=== PATIENT | female | born 1945 | race Native Hawaiian/Other Pacific Islander ===

== ENCOUNTER 2016-09-09 09:29 | Inpatient (IN) | payer OTHER ==
[~2016-09-09 09:29] MED LIST: ACET7.5T70 PO; ALEVE220 MG PO; ALLO300T23 PO; ALPR0.2566 PO; ATTALIQ6 PO; CARV6.25 PO; CLINDAMYCIN300 MG PO; DIVA500T PO; DOCU100C10 PO; FLUC200T PO; FOLI1TAB26 PO; INDERAL LA120 MG PO; KETO10TA34 PO; LIDODERM5 % EX; MAG OXIDE400 M2 PO; MAGNSUS68 PO; MEGE40TA32 PO; METF500T PO; NEXIUM40 M1 PO; NORTRIPTYLIN25 MG PO; ONDA4TAB3 PO; PANT40TA PO; PRAMIPEXOLE0.125 MG OR; PROMETHAZINE25 MG OR; Q-TUSSIN100 MG/5 M PO; TRAM50TA PO; VENLAFAXINE150 M1 PO; Z-PAK PO
== END 2016-10-10 08:00 | disposition still patient (30) ==
LOC: PAVB 09:29
PROVIDERS: ADMIT Internal Medicine
DX: Z51.89 Encounter for other specified aftercare (principal)

== ENCOUNTER 2016-10-10 09:00 | Inpatient (IN) | payer OTHER | END 2016-11-10 10:16 | disposition still patient (30) | LOC: PAVB 09:00 | PROVIDERS: ADMIT Internal Medicine | DX: Z51.89 Encounter for other specified aftercare (principal) ==

== ENCOUNTER 2016-10-11 08:03 | Outpatient (CLI) | payer OTHER | END 2016-10-11 19:20 | disposition home or self-care (01) | LOC: LAB 08:03 | DX: E11.9 Type 2 diabetes mellitus without complications (principal) | CPT/HCPCS: 36415; 83036 ==

== ENCOUNTER 2016-11-10 10:41 | Inpatient (IN) | payer OTHER | END 2016-12-08 09:45 | disposition still patient (30) | LOC: PAVB 10:41 | PROVIDERS: ADMIT Internal Medicine | DX: Z51.89 Encounter for other specified aftercare (principal) ==

== ENCOUNTER 2016-11-11 08:04 | Outpatient (CLI) | payer OTHER | END 2016-11-11 21:33 | disposition home or self-care (01) | LOC: LAB 08:04 | DX: K14.3 Hypertrophy of tongue papillae (principal) | CPT/HCPCS: 82607 ==

== ENCOUNTER 2016-12-08 10:33 | Inpatient (IN) | payer OTHER | END 2017-01-08 08:07 | disposition still patient (30) | LOC: PAVB 10:33 | PROVIDERS: ADMIT Internal Medicine | DX: Z51.89 Encounter for other specified aftercare (principal) ==

== ENCOUNTER 2017-01-08 09:26 | Inpatient (IN) | payer OTHER | END 2017-02-07 09:10 | disposition still patient (30) | LOC: PAVB 09:26 | PROVIDERS: ADMIT Internal Medicine | DX: Z51.89 Encounter for other specified aftercare (principal) ==

== ENCOUNTER 2017-01-10 09:33 | Outpatient (CLI) | payer OTHER | END 2017-01-10 10:33 | disposition home or self-care (01) | LOC: LAB 09:33 | DX: E11.9 Type 2 diabetes mellitus without complications (principal) | CPT/HCPCS: 36415; 83036 ==

== ENCOUNTER 2017-01-26 05:06 | Outpatient (CLI) | payer OTHER | END 2017-01-26 19:02 | disposition home or self-care (01) | LOC: LAB 05:06 | DX: Z16.24 Resistance to multiple antibiotics (principal) | CPT/HCPCS: 87081 ==

== ENCOUNTER 2017-02-07 10:00 | Inpatient (IN) | payer OTHER | END 2017-03-10 09:35 | disposition still patient (30) | LOC: PAVB 10:00 | PROVIDERS: ADMIT Internal Medicine | DX: Z51.89 Encounter for other specified aftercare (principal) ==

== ENCOUNTER 2017-02-10 10:27 | Outpatient (CLI) | payer OTHER ==
[2017-02-10 10:58] LABS: PLATELET COUNT 121 K/uL (152-353)
[2017-02-10 11:25] LABS: POTASSIUM 4.5 mmol/L (3.6-5.2); SODIUM 140 mmol/L (136-145)
== END 2017-02-10 12:00 | disposition home or self-care (01) ==
LOC: LAB 10:27
PROVIDERS: Internal Medicine
DX: M10.9 Gout, unspecified (principal); E11.9 Type 2 diabetes mellitus without complications; Z51.81 Encounter for therapeutic drug level monitoring
CPT/HCPCS: 36415; 80053; 80164; 83735; 84550; 85027

== ENCOUNTER 2017-02-12 13:27 | Outpatient (CLI) | payer OTHER | END 2017-02-12 14:30 | disposition home or self-care (01) | LOC: LAB 13:27 | DX: L02.91 Cutaneous abscess, unspecified (principal) | CPT/HCPCS: 87070; 87205 ==

== ENCOUNTER 2017-03-10 09:59 | Inpatient (IN) | payer OTHER | END 2017-04-09 15:22 | disposition still patient (30) | LOC: PAVB 09:59 | PROVIDERS: ADMIT Internal Medicine | DX: Z51.89 Encounter for other specified aftercare (principal) ==

== ENCOUNTER 2017-03-14 09:39 | Outpatient (CLI) | payer OTHER ==
[2017-03-14 10:20] LABS: PLATELET COUNT 114 K/uL (152-353)
== END 2017-03-14 19:26 | disposition home or self-care (01) ==
LOC: LAB 09:39
PROVIDERS: Internal Medicine
DX: G40.89 Other seizures (principal); Z79.899 Other long term (current) drug therapy; E11.9 Type 2 diabetes mellitus without complications; Z51.81 Encounter for therapeutic drug level monitoring
CPT/HCPCS: 83735; 85027

== ENCOUNTER 2017-03-24 05:02 | Outpatient (CLI) | payer OTHER | END 2017-03-24 19:38 | disposition home or self-care (01) | LOC: LAB 05:02 | DX: Z51.81 Encounter for therapeutic drug level monitoring (principal) | CPT/HCPCS: 83735 ==

== ENCOUNTER 2017-04-04 05:20 | Inpatient (IN) | payer OTHER ==
[~2017-04-04] VITALS: Ht 162.6 cm; Wt 96.2 kg
[2017-04-04] VITALS (9 sets, daily range): BP systolic 106–142; BP diastolic 67–84; TEMP 97.6–98.9; Ht 162.6 cm; Wt 96.2 kg
[2017-04-04 06:33] LABS: POTASSIUM 6.2 mmol/L (3.6-5.2)
[2017-04-04 06:34] LABS: PLATELET COUNT 133 K/uL (152-353)
--- NOTE | 2017-04-04 15:38 | NUR ---
PT'S CPAP BROUGHT BY BECCA FROM [place]. PT TOLERATING WELL. PT STILL DROWSY BUT AROUSABLE TO VERBAL STIMULI. FAMILY AT CONCERNED ABOUT PHENERGAN GAVE IN ER SHOULDN'T IT BE GONE OUT OF SYSTEM. INFORMED THEM THAT IN RELATION TO AGE AND KIDNEY FUNCTION IT CAN LAST LONGER IN SOME PEOPLE. INFORMED THEM THAT BY TONIGHT AND TOMORROW PATIENT SHOULDN'T BE SO SLEEPY. FAMILY VERBALIZED UNDERSTANDING.
--- NOTE | 2017-04-04 15:48 | NUR ---
SPOKE WITH JIM SANCHEZ NP AND KULDIP DUVAL RN REGARDING NOTIFIED OF PT'S 02 SAT 90% ON 3L NC AND PT STILL LETHARGIC. FAMILY CONCERNED. NEW ORDERS RECEIVED FOR RESP EVAL AND TREAT AND ABG. INFORMED THEM THAT ONCE NOTIFIED FROM [facility], PCT PT PLACED ON CPAP PER PT'S SETTINGS PRIOR TO COMING TO NOTIFY THEM OF PT'S STATUS.
--- NOTE | 2017-04-04 16:30 | NUR ---
ROTARY PUMP OPERATOR WENT TO PT'S ROOM TO DRAW BLOOD GAS TO FIND PT HAD JUST BEEN PLACED ON HER HOME BIPAP AFTER HAVING PHEN FOR [place] THIS AM AND HAD BEEN SLEEPING ALL DAY. HER SPO2 WAS 80%. BLOOD GAS WAS DRAWN AND MAYBE MIXED VENOUS. ROTARY PUMP OPERATOR BLEED O2 INTO PT'S HOME BIPAP AND REPORTED HER GAS TO HER NURSE CRIS AND NURSE MUKUND RN. PT'S SPO2 CAME UP TO 87% AND ROTARY PUMP OPERATOR ASKED IF MAYBE ANOUTHER GAS SHOULD BE DRAWN IN AN HOUR OR TWO.
--- NOTE | 2017-04-04 22:41 | NUR ---
04/04/17 1063 SISTER OF PATIENT ASSISTED TO PLACE CPAP ON PATIENT 02 SAT IS MEASURING 95 PERCENT.CC
--- NOTE | 2017-04-04 23:20 | NUR ---
04/01/16 CPAP REMOVED DUE TO LOW OXYGEN LEVEL 88 OXYGEN TUBING NOT CONNECTING TO CPAP CORRECTLY.RESP STATED EARILER THAT THEY WILL HAVE TO FIND A ADAPTER IN AM.PLACED PATIENT BACK ON 02 3LPM VIA NC.OXYGEN SATURATION BACK UP 93-94 PERCENT PATIENT AROUSED EASILY.SISTER PRESENT IN ROOM.CC
[2017-04-05] VITALS: BP 114/65; TEMP 97.6
--- NOTE | 2017-04-05 01:53 | NUR ---
04/05/17 0200 PT RESTING 02 SAT 96 PERCENT ON 3LPM NASAL CANNULA,PT SISTER HAD PLACED CPAP OVER FACE BECAUSE PT WAS RESTLESS WITHOUT IT.CC
[2017-04-05 04:00] VITALS: BP 101/66; TEMP 97.6
--- NOTE | 2017-04-05 06:50 | NUR ---
04/05/17 16 CROATIAN CATHETER INSERTED WITH 100ML NE COLORED URINE.PT STATED SHE CANNOT VOID BUT FEELS LIKE SHE NEEDS TO VOID. GARCIA TO BEDSIDE TOLERATED WELL.CC
--- NOTE | 2017-04-05 07:28 | NUR ---
PATIENTS FAMILY STATED NO STICKS WITHOUT LIDOCAINE FOR ABG PER DR. GANT AN PATIENT SATING 94% ON NC AT 3LPM. SHE WAS AWAKE AND TALKING AT THIS TIME.
[2017-04-05 08:00] VITALS: BP 104/66; TEMP 98.4
[2017-04-05 08:04] LABS: PLATELET COUNT 106 K/uL (152-353)
[2017-04-05 08:20] LABS: POTASSIUM 5.5 mmol/L (3.6-5.2)
[2017-04-05 12:00] VITALS: BP 119/78; TEMP 97.8
[2017-04-05 16:00] VITALS: BP 121/88; TEMP 96.2
[2017-04-05 20:00] VITALS: BP 122/77; TEMP 97.3
[2017-04-06] VITALS: BP 131/83; TEMP 97.6
[2017-04-06 04:00] VITALS: BP 143/83; TEMP 97.5
[2017-04-06 05:44] LABS: PLATELET COUNT 112 K/uL (152-353)
[2017-04-06 06:13] LABS: POTASSIUM 4.3 mmol/L (3.6-5.2)
[2017-04-06 08:00] VITALS: BP 134/78; TEMP 97.5
--- NOTE | 2017-04-06 13:30 | NUR ---
GARCIA CATHETER D/C'D AFTER BLADDER TRAINING. PT TOLERATED WELL.
--- NOTE | 2017-04-06 13:51 | NUR ---
REPORT GIVEN TO ANAHI HENNING LPN ON [facility] [facility].
--- NOTE | 2017-04-06 13:51 | NUR ---
PT BACK TO [facility] [place] VIA W/C WITH PILAR.
== END 2017-04-06 14:00 | DRG 757 ==
LOC: ED 05:20 → MED/SURG 09:00
PROVIDERS: Emergency Medicine; ADMIT Family Medicine
DX: N76.0 Acute vaginitis (principal); J96.92 Respiratory failure, unspecified with hypercapnia; E86.0 Dehydration; E87.5 Hyperkalemia; I10 Essential (primary) hypertension; E11.9 Type 2 diabetes mellitus without complications; D72.828 Other elevated white blood cell count; R06.00 Dyspnea, unspecified; B96.20 Unspecified Escherichia coli [E. coli] as the cause of diseases classified elsewhere; B96.4 Proteus (mirabilis) (morganii) as the cause of diseases classified elsewhere
CPT/HCPCS: 36415; 36600; 80053; 81000; 82150; 82805; 82948; 83036; 83690; 83735; 84100; 85027; 87070; 87077; 87088; 87186; 87210; 93005; 94760; 96361; 96365; 96366; 96367; 96374; 99284; J2550; J3490

== ENCOUNTER 2017-04-09 15:41 | Inpatient (IN) | payer OTHER | END 2017-05-10 09:43 | disposition still patient (30) | LOC: PAVB 15:41 | PROVIDERS: ADMIT Internal Medicine | DX: Z51.89 Encounter for other specified aftercare (principal) ==

== ENCOUNTER 2017-04-11 10:33 | Outpatient (CLI) | payer OTHER | END 2017-04-11 11:35 | disposition home or self-care (01) | LOC: LAB 10:33 | DX: E11.9 Type 2 diabetes mellitus without complications (principal) | CPT/HCPCS: 83036 ==

== ENCOUNTER 2017-04-23 09:24 | Outpatient (CLI) | payer OTHER | END 2017-04-23 19:14 | disposition home or self-care (01) | LOC: RAD 09:24 | DX: M79.661 Pain in right lower leg (principal); R60.0 Localized edema ==

== ENCOUNTER 2017-04-25 15:29 | Outpatient (CLI) | payer OTHER | END 2017-04-25 16:30 | disposition home or self-care (01) | LOC: RESP 15:29 | DX: R53.83 Other fatigue (principal) | CPT/HCPCS: 36600; 82805 ==

== ENCOUNTER 2017-05-10 10:34 | Inpatient (IN) | payer OTHER | END 2017-06-10 08:41 | disposition still patient (30) | LOC: PAVB 10:34 | PROVIDERS: ADMIT Internal Medicine | DX: Z51.89 Encounter for other specified aftercare (principal) ==

== ENCOUNTER 2017-05-12 17:34 | Outpatient (CLI) | payer OTHER | END 2017-05-12 20:02 | disposition home or self-care (01) | LOC: RAD 17:34 → LAB 17:34 | DX: M54.5 Low back pain (principal) | CPT/HCPCS: 81000 ==

== ENCOUNTER 2017-06-10 09:13 | Inpatient (IN) | payer OTHER ==
[2017-07-05] MEDS ORDERED: CULTURELL3 OR (18:28)
[2017-07-05] MEDS ORDERED: FURO20TA67 PO (18:29)
[2017-07-05] MEDS ORDERED: ZANTAC 75 PO (18:30)
[2017-07-05] MEDS ORDERED: GABA300C2 PO (18:30)
== END 2017-07-10 10:40 | disposition still patient (30) ==
LOC: PAVB 09:13
PROVIDERS: ADMIT Internal Medicine
DX: Z51.89 Encounter for other specified aftercare (principal)

== ENCOUNTER 2017-06-23 11:04 | Outpatient (CLI) | payer OTHER ==
[2017-06-23 11:50] LABS: PLATELET COUNT 150 K/uL (152-353)
[2017-06-23 11:59] LABS: PARTIAL THROMBOPLASTIN TIME 26.2 SECONDS (24.5-33.6)
[2017-06-23 12:03] LABS: POTASSIUM 4.3 mmol/L (3.6-5.2)
== END 2017-06-23 13:05 | disposition home or self-care (01) ==
LOC: RAD 11:04 → LAB 11:04 → RAD 13:05
PROVIDERS: Internal Medicine
DX: E11.9 Type 2 diabetes mellitus without complications (principal); Z01.810 Encounter for preprocedural cardiovascular examination; Z01.811 Encounter for preprocedural respiratory examination; Z01.812 Encounter for preprocedural laboratory examination; Z51.81 Encounter for therapeutic drug level monitoring
CPT/HCPCS: 36415; 80053; 81000; 83036; 85027; 85610; 85730; 93005

== ENCOUNTER 2017-07-03 14:19 | Outpatient (CLI) | payer OTHER ==
[2017-07-03 14:43] LABS: PLATELET COUNT 105 K/uL (152-353)
== END 2017-07-03 16:20 | disposition home or self-care (01) ==
LOC: RESP 14:19 → LAB 14:19 → RAD 14:19 → LAB 16:20
PROVIDERS: Internal Medicine
DX: R41.82 Altered mental status, unspecified (principal)
CPT/HCPCS: 36600; 80053; 80164; 82805; 85027

== ENCOUNTER 2017-07-05 10:00 | Inpatient (IN) | payer OTHER ==
[~2017-07-05] VITALS: Ht 162.6 cm; Wt 86.6 kg
[2017-07-05] VITALS (33 sets, daily range): BP systolic 56–150; BP diastolic 00–117; TEMP 97.4–97.9; Ht 162.6 cm; Wt 86.6 kg
[2017-07-05 10:59] LABS: PLATELET COUNT 109 K/uL (152-353)
[2017-07-05 11:04] LABS: POTASSIUM 5.2 mmol/L (3.6-5.2); SODIUM 135 mmol/L (136-145)
[2017-07-05] MEDS ORDERED: CULTURELL3 OR (18:28)
[2017-07-05] MEDS ORDERED: FURO20TA67 PO (18:29)
[2017-07-05] MEDS ORDERED: GABA300C2 PO (18:30)
[2017-07-05] MEDS ORDERED: ZANTAC 75 PO (18:30)
== END 2017-07-05 21:40 | disposition short-term general hospital (02) | DRG 872 ==
LOC: ED 10:00 → ICU 12:10
PROVIDERS: ADMIT Family Medicine
PROC: 02HV33Z Insertion of Infusion Device into Superior Vena Cava, Percutaneous Approach (ICD-10-PCS; principal; 2017-07-05)
DX: A41.89 Other specified sepsis (principal); G40.802 Other epilepsy, not intractable, without status epilepticus; N39.0 Urinary tract infection, site not specified; I95.89 Other hypotension; D72.828 Other elevated white blood cell count; E11.9 Type 2 diabetes mellitus without complications; R06.89 Other abnormalities of breathing; A08.8 Other specified intestinal infections; E86.0 Dehydration; R41.82 Altered mental status, unspecified
CPT/HCPCS: 36415; 36600; 74022; 80053; 80164; 81000; 82550; 82805; 83605; 83735; 84484; 85007; 85027; 85379; 87040; 87088; 93005; 96361; 96365; 96372; 99284; C1768; J0696; J1650; J2543; J3490

== ENCOUNTER 2017-07-10 10:43 | Inpatient (IN) | payer OTHER ==
[~2017-07-10 10:43] MED LIST changes: +CULTURELL3 OR; +FURO20TA67 PO; +GABA300C2 PO; +ZANTAC 75 PO
[2017-07-14 07:03] LABS: POTASSIUM 3.4 mmol/L (3.6-5.2); SODIUM 138 mmol/L (136-145)
[2017-07-14 08:30] LABS: PLATELET COUNT 127 K/uL (152-353)
== END 2017-08-10 12:57 | disposition still patient (30) ==
LOC: PAVB 10:43
PROVIDERS: ADMIT Internal Medicine
CPT/HCPCS: 36415; 80053; 80164; 83036; 84550; 85007; 85027; 87015; 87045; 87324; 87449; 87899

== ENCOUNTER 2017-08-10 13:45 | Inpatient (IN) | payer OTHER | END 2017-09-09 09:20 | disposition still patient (30) | LOC: PAVB 13:45 | PROVIDERS: ADMIT Internal Medicine ==

== ENCOUNTER 2017-08-15 10:31 | Outpatient (CLI) | payer OTHER | END 2017-08-15 11:35 | disposition home or self-care (01) | LOC: LAB 10:31 | DX: M10.9 Gout, unspecified (principal) | CPT/HCPCS: 83735 ==

== ENCOUNTER 2017-09-09 09:41 | Inpatient (IN) | payer OTHER | END 2017-10-10 09:31 | disposition still patient (30) | LOC: PAVB 09:41 | PROVIDERS: ADMIT Internal Medicine ==

== ENCOUNTER 2017-10-10 10:03 | Inpatient (IN) | payer OTHER | END 2017-11-10 09:49 | disposition still patient (30) | LOC: PAVB 10:03 | PROVIDERS: ADMIT Internal Medicine ==

== ENCOUNTER 2017-10-11 05:30 | Outpatient (CLI) | payer OTHER | END 2017-10-11 20:24 | disposition home or self-care (01) | LOC: LAB 05:30 | DX: E11.9 Type 2 diabetes mellitus without complications (principal) | CPT/HCPCS: 36415; 83036 ==

== ENCOUNTER 2017-11-10 10:37 | Inpatient (IN) | payer OTHER | END 2017-12-08 09:19 | disposition still patient (30) | LOC: PAVB 10:37 | PROVIDERS: ADMIT Internal Medicine ==

== ENCOUNTER 2017-12-08 09:55 | Inpatient (IN) | payer OTHER | END 2018-01-08 08:00 | disposition still patient (30) | LOC: PAVB 09:55 | PROVIDERS: ADMIT Internal Medicine ==

== ENCOUNTER 2017-12-23 14:54 | Outpatient (CLI) | payer OTHER | END 2017-12-23 18:00 | disposition home or self-care (01) | LOC: LAB 14:54 | DX: L02.234 Carbuncle of groin (principal) | CPT/HCPCS: 87070; 87077; 87186; 87205 ==

== ENCOUNTER 2017-12-26 11:06 | Outpatient (CLI) | payer OTHER | END 2017-12-26 19:25 | disposition home or self-care (01) | LOC: INF 11:06 → US 13:00 → INF 19:25 | DX: L02.234 Carbuncle of groin (principal) | CPT/HCPCS: 96365; J0696 ==

== ENCOUNTER 2017-12-27 10:22 | Outpatient (CLI) | payer OTHER ==
[~2017-12-27] VITALS: Ht 163.8 cm; Wt 89.8 kg
[2017-12-27 10:30] VITALS: BP 107/74; TEMP 98.9
[2017-12-27 11:50] VITALS: BP 102/66; TEMP 98.7
== END 2017-12-27 11:55 ==
LOC: INF 10:22
DX: L02.234 Carbuncle of groin (principal)
CPT/HCPCS: 96365; J0696

== ENCOUNTER 2017-12-28 09:25 | Outpatient (CLI) | payer OTHER ==
[~2017-12-28] VITALS: Ht 163.8 cm; Wt 90.0 kg
[2017-12-28 09:42] VITALS: BP 114/62; TEMP 98.8
[2017-12-28 11:01] VITALS: BP 109/70; TEMP 98.7
== END 2017-12-28 11:13 | disposition home or self-care (01) ==
LOC: INF 09:25
DX: L02.234 Carbuncle of groin (principal)
CPT/HCPCS: 96365; J0696

== ENCOUNTER 2017-12-29 09:47 | Outpatient (CLI) | payer OTHER ==
[~2017-12-29] VITALS: Ht 163.8 cm; Wt 89.8 kg
[2017-12-29 09:45] VITALS: BP 121/73; TEMP 98.1
[2017-12-29 10:45] VITALS: BP 116/73; TEMP 98.7
== END 2017-12-29 22:55 | disposition home or self-care (01) ==
LOC: INF 09:47
DX: L02.234 Carbuncle of groin (principal)
CPT/HCPCS: 96365; J0696

== ENCOUNTER 2017-12-30 10:41 | Outpatient (CLI) | payer OTHER ==
[~2017-12-30] VITALS: Ht 162.6 cm; Wt 87.1 kg
== END 2017-12-30 23:00 | disposition home or self-care (01) ==
LOC: INF 10:41
DX: L02.234 Carbuncle of groin (principal)
CPT/HCPCS: 96365; J0696

== ENCOUNTER 2017-12-31 10:35 | Outpatient (CLI) | payer OTHER | END 2017-12-31 19:32 | disposition home or self-care (01) | LOC: INF 10:35 | DX: L02.234 Carbuncle of groin (principal) | CPT/HCPCS: 96365; J0696 ==

== ENCOUNTER 2018-01-01 10:12 | Outpatient (CLI) | payer OTHER | END 2018-01-01 21:44 | disposition home or self-care (01) | LOC: INF 10:12 | DX: L02.234 Carbuncle of groin (principal) | CPT/HCPCS: 96365; J0696 ==

== ENCOUNTER 2018-01-08 09:00 | Inpatient (IN) | payer OTHER | END 2018-02-07 09:05 | disposition still patient (30) | LOC: PAVB 09:00 | PROVIDERS: ADMIT Internal Medicine ==

== ENCOUNTER 2018-01-10 07:46 | Outpatient (CLI) | payer OTHER | END 2018-01-10 22:52 | disposition home or self-care (01) | LOC: LAB 07:46 | DX: E11.9 Type 2 diabetes mellitus without complications (principal) | CPT/HCPCS: 83036 ==

== ENCOUNTER 2018-02-07 09:32 | Inpatient (IN) | payer OTHER | END 2018-03-10 08:53 | disposition still patient (30) | LOC: PAVB 09:32 | PROVIDERS: ADMIT Internal Medicine ==

== ENCOUNTER 2018-02-08 07:10 | Outpatient (CLI) | payer OTHER ==
[2018-02-08 08:22] LABS: PLATELET COUNT 89 K/uL (152-353)
[2018-02-08 08:53] LABS: POTASSIUM 4.4 mmol/L (3.6-5.2)
== END 2018-02-08 21:36 | disposition home or self-care (01) ==
LOC: LABW 07:10
PROVIDERS: Internal Medicine
DX: E11.9 Type 2 diabetes mellitus without complications (principal); Z51.81 Encounter for therapeutic drug level monitoring; M10.9 Gout, unspecified
CPT/HCPCS: 80053; 80164; 83735; 84550; 85027

== ENCOUNTER 2018-02-23 13:12 | Outpatient (CLI) | payer OTHER | END 2018-02-23 23:36 | disposition home or self-care (01) | LOC: MAMMO 13:12 | DX: Z12.31 Encounter for screening mammogram for malignant neoplasm of breast (principal) ==

== ENCOUNTER 2018-03-10 09:19 | Inpatient (IN) | payer OTHER | END 2018-04-09 14:19 | disposition still patient (30) | LOC: PAVB 09:19 | PROVIDERS: ADMIT Internal Medicine ==

== ENCOUNTER 2018-04-09 14:51 | Inpatient (IN) | payer OTHER | END 2018-05-10 08:00 | disposition still patient (30) | LOC: PAVB 14:51 | PROVIDERS: ADMIT Internal Medicine ==

== ENCOUNTER 2018-04-13 08:29 | Outpatient (CLI) | payer OTHER | END 2018-04-13 19:32 | disposition home or self-care (01) | LOC: LAB 08:29 | DX: E11.9 Type 2 diabetes mellitus without complications (principal) | CPT/HCPCS: 83036 ==

== ENCOUNTER 2018-05-10 09:00 | Inpatient (IN) | payer OTHER | END 2018-06-10 10:18 | disposition still patient (30) | LOC: PAVB 09:00 | PROVIDERS: ADMIT Internal Medicine ==

== ENCOUNTER 2018-06-10 11:00 | Inpatient (IN) | payer OTHER | END 2018-07-10 09:33 | disposition still patient (30) | LOC: PAVB 11:00 | PROVIDERS: ADMIT Internal Medicine ==

== ENCOUNTER 2018-07-10 10:10 | Inpatient (IN) | payer OTHER | END 2018-08-10 08:48 | disposition still patient (30) | LOC: PAVB 10:10 | PROVIDERS: ADMIT Internal Medicine ==

== ENCOUNTER 2018-07-11 04:54 | Outpatient (CLI) | payer OTHER ==
[2018-07-11 06:38] LABS: PLATELET COUNT 104 K/uL (152-353)
[2018-07-11 07:00] LABS: POTASSIUM 4.7 mmol/L (3.6-5.2)
== END 2018-07-11 22:57 | disposition home or self-care (01) ==
LOC: LAB 04:54
PROVIDERS: Internal Medicine
DX: E11.9 Type 2 diabetes mellitus without complications (principal); Z79.899 Other long term (current) drug therapy; M10.9 Gout, unspecified
CPT/HCPCS: 80053; 80164; 83036; 84550; 85027

== ENCOUNTER 2018-08-10 06:38 | Outpatient (CLI) | payer OTHER ==
[2018-08-10 08:13] LABS: PLATELET COUNT 122 K/uL (152-353)
[2018-08-10 08:27] LABS: POTASSIUM 4.7 mmol/L (3.6-5.2)
== END 2018-08-10 21:49 | disposition home or self-care (01) ==
LOC: LAB 06:38
PROVIDERS: Internal Medicine
DX: M10.9 Gout, unspecified (principal); Z79.899 Other long term (current) drug therapy
CPT/HCPCS: 36415; 80053; 80164; 83735; 84550; 85027

== ENCOUNTER 2018-08-10 09:50 | Inpatient (IN) | payer OTHER | END 2018-09-09 08:32 | disposition still patient (30) | LOC: PAVB 09:50 | PROVIDERS: ADMIT Internal Medicine ==

== ENCOUNTER 2018-09-09 09:15 | Inpatient (IN) | payer OTHER | END 2018-10-10 11:05 | disposition still patient (30) | LOC: PAVB 09:15 | PROVIDERS: ADMIT Internal Medicine ==

== ENCOUNTER 2018-10-10 11:23 | Inpatient (IN) | payer OTHER | END 2018-11-10 10:54 | disposition still patient (30) | LOC: PAVB 11:23 | PROVIDERS: ADMIT Internal Medicine ==

== ENCOUNTER 2018-10-16 04:09 | Outpatient (CLI) | payer OTHER | END 2018-10-16 19:20 | disposition home or self-care (01) | LOC: LAB 04:09 | DX: E11.9 Type 2 diabetes mellitus without complications (principal) | CPT/HCPCS: 83036 ==

== ENCOUNTER 2018-11-01 17:55 | Outpatient (CLI) | payer OTHER | END 2018-11-01 22:09 | disposition home or self-care (01) | LOC: LAB 17:55 | DX: L02.91 Cutaneous abscess, unspecified (principal) | CPT/HCPCS: 87070; 87205 ==

== ENCOUNTER 2018-11-10 11:13 | Inpatient (IN) | payer OTHER | END 2018-12-08 10:19 | disposition still patient (30) | LOC: PAVB 11:13 | PROVIDERS: ADMIT Internal Medicine ==

== ENCOUNTER 2018-12-08 11:10 | Inpatient (IN) | payer OTHER | END 2019-01-08 10:39 | disposition still patient (30) | LOC: PAVB 11:10 | PROVIDERS: ADMIT Internal Medicine ==

== ENCOUNTER 2019-01-08 11:18 | Inpatient (IN) | payer OTHER | END 2019-02-07 11:17 | disposition still patient (30) | LOC: PAVB 11:18 | PROVIDERS: ADMIT Internal Medicine ==

== ENCOUNTER 2019-01-10 06:36 | Outpatient (CLI) | payer OTHER | END 2019-01-10 19:40 | disposition home or self-care (01) | LOC: LAB 06:36 | DX: E11.9 Type 2 diabetes mellitus without complications (principal) | CPT/HCPCS: 36415; 83036 ==

== ENCOUNTER 2019-02-07 12:22 | Inpatient (IN) | payer OTHER | END 2019-03-10 08:38 | disposition still patient (30) | LOC: PAVB 12:22 | PROVIDERS: ADMIT Internal Medicine | DX: Z51.89 Encounter for other specified aftercare (principal) ==

== ENCOUNTER 2019-02-12 05:34 | Outpatient (CLI) | payer OTHER ==
[2019-02-12 06:21] LABS: PLATELET COUNT 118 K/uL (152-353)
[2019-02-12 06:50] LABS: POTASSIUM 4.5 mmol/L (3.6-5.2)
== END 2019-02-12 20:15 | disposition home or self-care (01) ==
LOC: LAB 05:34
PROVIDERS: Internal Medicine
DX: M10.9 Gout, unspecified (principal); Z79.899 Other long term (current) drug therapy
CPT/HCPCS: 36415; 80053; 80164; 83735; 84550; 85027

== ENCOUNTER 2019-03-10 09:25 | Inpatient (IN) | payer OTHER | END 2019-04-09 09:37 | disposition still patient (30) | LOC: PAVB 09:25 | PROVIDERS: ADMIT Internal Medicine ==

== ENCOUNTER 2019-04-09 11:24 | Inpatient (IN) | payer OTHER | END 2019-05-10 10:35 | disposition still patient (30) | LOC: PAVB 11:24 | PROVIDERS: ADMIT Internal Medicine ==

== ENCOUNTER 2019-04-11 03:55 | Outpatient (CLI) | payer OTHER | END 2019-04-11 19:13 | disposition home or self-care (01) | LOC: LAB 03:55 | DX: E11.21 Type 2 diabetes mellitus with diabetic nephropathy (principal) | CPT/HCPCS: 36415; 83036 ==

== ENCOUNTER 2019-05-04 15:07 | Outpatient (CLI) | payer OTHER | END 2019-05-04 19:13 | disposition home or self-care (01) | LOC: RAD 15:07 | DX: M25.562 Pain in left knee (principal) ==

== ENCOUNTER 2019-05-10 11:15 | Inpatient (IN) | payer OTHER | END 2019-06-10 16:26 | disposition still patient (30) | LOC: PAVB 11:15 | PROVIDERS: ADMIT Internal Medicine ==

== ENCOUNTER 2019-06-08 17:48 | Outpatient (CLI) | payer OTHER | END 2019-06-08 21:55 | disposition home or self-care (01) | LOC: RAD 17:48 | DX: M54.2 Cervicalgia (principal) ==

== ENCOUNTER 2019-06-10 17:05 | Inpatient (IN) | payer OTHER | END 2019-07-10 09:21 | disposition still patient (30) | LOC: PAVB 17:05 | PROVIDERS: ADMIT Internal Medicine ==

== ENCOUNTER 2019-07-10 10:28 | Inpatient (IN) | payer OTHER | END 2019-08-10 11:09 | disposition still patient (30) | LOC: PAVB 10:28 | PROVIDERS: ADMIT Internal Medicine ==

== ENCOUNTER 2019-07-12 06:30 | Outpatient (CLI) | payer OTHER | END 2019-07-12 23:15 | disposition home or self-care (01) | LOC: LAB 06:30 | DX: E11.21 Type 2 diabetes mellitus with diabetic nephropathy (principal) | CPT/HCPCS: 36415; 83036 ==

== ENCOUNTER 2019-07-27 11:07 | Emergency (ER) | payer OTHER ==
[~2019-07-27] VITALS: Ht 157.5 cm; Wt 88.0 kg
[2019-07-27 11:07] VITALS: BP 129/78; TEMP 97.3
== END 2019-07-27 14:15 ==
LOC: ED 11:10
PROC: 0HQEXZZ Repair Left Lower Arm Skin, External Approach (ICD-10-PCS; principal; 2019-07-27)
DX: S50.02XA Contusion of left elbow, initial encounter (principal); S51.012A Laceration without foreign body of left elbow, initial encounter; W18.2XXA Fall in (into) shower or empty bathtub, initial encounter; Y92.121 Bathroom in nursing home as the place of occurrence of the external cause
CPT/HCPCS: 99283; J2001; J7040

== ENCOUNTER 2019-08-10 11:33 | Inpatient (IN) | payer OTHER | END 2019-09-09 08:00 | disposition still patient (30) | LOC: PAVB 11:33 | PROVIDERS: ADMIT Internal Medicine ==

== ENCOUNTER 2019-08-16 05:57 | Outpatient (CLI) | payer OTHER ==
[2019-08-16 08:10] LABS: POTASSIUM 4.8 mmol/L (3.6-5.2)
[2019-08-16 08:57] LABS: PLATELET COUNT 163 K/uL (152-353)
== END 2019-08-16 20:39 | disposition home or self-care (01) ==
LOC: LAB 05:57
PROVIDERS: Internal Medicine
DX: I10 Essential (primary) hypertension (principal); M10.9 Gout, unspecified; Z51.81 Encounter for therapeutic drug level monitoring
CPT/HCPCS: 36415; 80053; 80164; 83735; 84550; 85027

== ENCOUNTER 2019-09-09 10:10 | Inpatient (IN) | payer OTHER ==
[~2019-09-09 10:10] MED LIST changes: -MAG OXIDE400 M2 PO; +MAG OXIDE400 MG PO
== END 2019-10-10 08:34 | disposition still patient (30) ==
LOC: PAVB 10:10
PROVIDERS: ADMIT Internal Medicine

== ENCOUNTER 2019-10-10 08:50 | Inpatient (IN) | payer OTHER | END 2019-11-10 09:56 | disposition still patient (30) | LOC: PAVB 08:50 | PROVIDERS: ADMIT Internal Medicine ==

== ENCOUNTER 2019-10-11 06:32 | Outpatient (CLI) | payer OTHER ==
[~2019-10-11 06:32] MED LIST changes: +MAG OXIDE400 M2 PO; -MAG OXIDE400 MG PO
== END 2019-10-11 19:31 | disposition home or self-care (01) ==
LOC: LAB 06:32
DX: E11.40 Type 2 diabetes mellitus with diabetic neuropathy, unspecified (principal)
CPT/HCPCS: 83036

== ENCOUNTER 2019-11-02 15:01 | Outpatient (CLI) | payer OTHER | END 2019-11-02 19:47 | disposition home or self-care (01) | LOC: RAD 15:01 | DX: M25.562 Pain in left knee (principal) ==

== ENCOUNTER 2019-11-10 10:33 | Inpatient (IN) | payer OTHER ==
[~2019-11-10 10:33] MED LIST changes: -MAG OXIDE400 M2 PO; +MAG OXIDE400 MG PO
== END 2019-12-09 13:15 | disposition still patient (30) ==
LOC: PAVB 10:33
PROVIDERS: ADMIT Internal Medicine

== ENCOUNTER 2019-12-17 04:20 | Inpatient (IN) | payer OTHER ==
[~2019-12-17] VITALS: Ht 161.3 cm; Wt 88.5 kg
[2019-12-17] VITALS (25 sets, daily range): BP systolic 92–126; BP diastolic 51–76; TEMP 97.8–98.8; Ht 161.3 cm; Wt 88.5 kg
[2019-12-17 05:40] LABS: PLATELET COUNT 162 K/uL (152-353)
[2019-12-17 05:41] LABS: POTASSIUM 4.9 mmol/L (3.6-5.2); SODIUM 136 mmol/L (136-145)
[2019-12-17 05:42] LABS: PARTIAL THROMBOPLASTIN TIME 23.9 SECONDS (24.5-33.6)
[2019-12-17] MEDS ORDERED: GABA100C2 PO (08:30)
[2019-12-17] MEDS ORDERED: CETI10TA PO (08:32)
[2019-12-17] MEDS ORDERED: OMEP20CA PO (08:33)
[2019-12-17] MEDS ORDERED: SYSTANE OPTH (08:50)
[2019-12-17] MEDS ORDERED: ALBUSOL INH (08:59)
[2019-12-17] MEDS ORDERED: CLARITIN10 MG PO (09:01)
[2019-12-17] MEDS ORDERED: FIORICET 50-3001 CAP PO (09:03)
[2019-12-17] MEDS ORDERED: [UNRECOGNIZED DRUG - CODE] RE (09:05)
[2019-12-17] MEDS ORDERED: GUAIFENESI PO (09:07)
[2019-12-17] MEDS ORDERED: SALONPAS TD (09:09)
[2019-12-17] MEDS ORDERED: TYLENOL325 MG PO (09:13)
[2019-12-17] MEDS ORDERED: TRAM50TA PO (09:14)
[2019-12-17] MEDS ORDERED: DICL1GEL2 TOP (09:15)
[2019-12-18] VITALS (23 sets, daily range): BP systolic 98–147; BP diastolic 53–83; TEMP 97.3–98.6
[2019-12-18 05:39] LABS: PLATELET COUNT 128 K/uL (152-353)
[2019-12-18 05:43] LABS: POTASSIUM 5.8 mmol/L (3.6-5.2)
[2019-12-18 15:45] LABS: POTASSIUM 5.5 mmol/L (3.6-5.2)
[2019-12-19] VITALS (23 sets, daily range): BP systolic 110–141; BP diastolic 58–83; TEMP 97.7–98.2
[2019-12-19 05:19] LABS: POTASSIUM 5.3 mmol/L (3.6-5.2)
[2019-12-19 05:37] LABS: PLATELET COUNT 132 K/uL (152-353)
[2019-12-20] VITALS (8 sets, daily range): BP systolic 108–161; BP diastolic 55–88; TEMP 98.1
[2019-12-20 05:25] LABS: PLATELET COUNT 125 K/uL (152-353)
[2019-12-20 05:48] LABS: POTASSIUM 4.9 mmol/L (3.6-5.2)
[2019-12-21 00:29] VITALS: BP 133/71; TEMP 98.5
[2019-12-21 04:06] VITALS: BP 152/88; TEMP 98.8
[2019-12-21 05:21] LABS: POTASSIUM 4.6 mmol/L (3.6-5.2)
[2019-12-21 05:42] LABS: PLATELET COUNT 134 K/uL (152-353)
[2019-12-21 08:00] VITALS: BP 157/87; TEMP 97.9
[2019-12-21] MEDS ORDERED: PRED20TA27 PO (11:40)
[2019-12-21] MEDS ORDERED: PRED10TA27 PO (11:41)
[2019-12-21] MEDS ORDERED: PREDNISONE5 MG PO (11:42)
== END 2019-12-21 12:30 | DRG 871 ==
LOC: ED 04:20 → ICU 06:20 → ED 06:20 → MED/SURG 12-20 10:25
PROVIDERS: Internal Medicine; ADMIT Hospitalist
DX: A41.89 Other specified sepsis (principal); J18.8 Other pneumonia, unspecified organism; J96.21 Acute and chronic respiratory failure with hypoxia; E87.2 Acidosis; G40.802 Other epilepsy, not intractable, without status epilepticus; F45.8 Other somatoform disorders; J44.9 Chronic obstructive pulmonary disease, unspecified; E11.42 Type 2 diabetes mellitus with diabetic polyneuropathy; G47.33 Obstructive sleep apnea (adult) (pediatric); F78 Other intellectual disabilities; M10.9 Gout, unspecified; K21.9 Gastro-esophageal reflux disease without esophagitis; M15.8 Other polyosteoarthritis; F41.1 Generalized anxiety disorder; E87.5 Hyperkalemia; E83.41 Hypermagnesemia; E87.8 Other disorders of electrolyte and fluid balance, not elsewhere classified; I12.9 Hypertensive chronic kidney disease with stage 1 through stage 4 chronic kidney disease, or unspecified chronic kidney disease; E11.22 Type 2 diabetes mellitus with diabetic chronic kidney disease; N18.3 Chronic kidney disease, stage 3 (moderate)
CPT/HCPCS: 36415; 36600; 80048; 80053; 80164; 80202; 81000; 82550; 82805; 83036; 83605; 83735; 83880; 84484; 85007; 85027; 85610; 85730; 87040; 87086; 87088; 93005; 94640; 94660; 94664; 94760; 96360; 96365; 96366; 96375; 99285; J1650; J1956; J2930; J3370; J3490

== ENCOUNTER 2020-01-09 10:25 | Inpatient (IN) | payer OTHER ==
[~2020-01-09 10:25] MED LIST changes: +ALBUSOL INH; +CETI10TA PO; +CLARITIN10 MG PO; +DICL1GEL2 TOP; +FIORICET 50-3001 CAP PO; +GABA100C2 PO; +GUAIFENESI PO; +OMEP20CA PO; +PRED10TA27 PO; +PRED20TA27 PO; +PREDNISONE5 MG PO; +SALONPAS TD; +SYSTANE OPTH; +TYLENOL325 MG PO; +[UNRECOGNIZED DRUG - CODE] RE
== END 2020-02-08 09:02 | disposition still patient (30) ==
LOC: PAVB 10:25
PROVIDERS: ADMIT Internal Medicine
DX: J18.9 Pneumonia, unspecified organism (principal); J44.1 Chronic obstructive pulmonary disease with (acute) exacerbation; A41.9 Sepsis, unspecified organism; E87.2 Acidosis; M62.81 Muscle weakness (generalized); R26.2 Difficulty in walking, not elsewhere classified; J96.20 Acute and chronic respiratory failure, unspecified whether with hypoxia or hypercapnia; F70 Mild intellectual disabilities; I27.81 Cor pulmonale (chronic)
CPT/HCPCS: 82565; 83036; 84520; 85379

== ENCOUNTER 2020-01-13 12:21 | Emergency (ER) | payer OTHER ==
[~2020-01-13] VITALS: Ht 161.3 cm; Wt 88.5 kg
[2020-01-13 12:21] VITALS: TEMP 97.3
[2020-01-13 13:06] LABS: PLATELET COUNT 49 K/uL (152-353)
[2020-01-13 13:20] LABS: POTASSIUM 4.6 mmol/L (3.6-5.2); SODIUM 138 mmol/L (136-145)
[2020-01-13 13:22] LABS: PARTIAL THROMBOPLASTIN TIME 24.9 SECONDS (24.5-33.6)
[2020-01-13 16:30] VITALS: BP 124/51
== END 2020-01-13 16:55 | disposition home or self-care (01) ==
LOC: ED 12:21
PROVIDERS: Hospitalist
DX: N39.0 Urinary tract infection, site not specified (principal); G25.2 Other specified forms of tremor; R56.9 Unspecified convulsions; I50.9 Heart failure, unspecified
CPT/HCPCS: 80053; 80164; 81000; 82550; 83880; 84484; 85007; 85027; 85610; 85730; 87086; 87088; 93005; 94664; 96365; 96366; 96375; 99284; J1940; J1956

== ENCOUNTER 2020-01-14 14:22 | Outpatient (CLI) | payer OTHER | END 2020-01-14 19:18 | disposition home or self-care (01) | LOC: US 14:22 | DX: R06.02 Shortness of breath (principal) ==

== ENCOUNTER 2020-01-17 06:49 | Outpatient (CLI) | payer OTHER | END 2020-01-17 21:56 | disposition home or self-care (01) | LOC: LAB 06:49 | DX: Z51.81 Encounter for therapeutic drug level monitoring (principal) | CPT/HCPCS: 80164 ==

== ENCOUNTER 2020-01-25 06:01 | Outpatient (CLI) | payer OTHER | END 2020-01-25 19:53 | disposition home or self-care (01) | LOC: LAB 06:01 | DX: Z79.899 Other long term (current) drug therapy (principal); Z51.81 Encounter for therapeutic drug level monitoring | CPT/HCPCS: 80164 ==

== ENCOUNTER 2020-01-30 21:27 | Outpatient (CLI) | payer OTHER ==
[2020-01-30 22:27] LABS: POTASSIUM 4.4 mmol/L (3.6-5.2)
[2020-01-30 22:50] LABS: PLATELET COUNT 40 K/uL (152-353)
== END 2020-01-30 22:59 | disposition home or self-care (01) ==
LOC: LAB 21:27
PROVIDERS: Internal Medicine
DX: U07.1 COVID-19 (principal); J96.20 Acute and chronic respiratory failure, unspecified whether with hypoxia or hypercapnia; R55 Syncope and collapse
CPT/HCPCS: 80053; 85007; 85027

== ENCOUNTER 2020-02-07 05:56 | Outpatient (CLI) | payer OTHER ==
[2020-02-07 06:39] LABS: PLATELET COUNT 44 K/uL (152-353)
== END 2020-02-07 20:40 | disposition home or self-care (01) ==
LOC: LAB 05:56
PROVIDERS: Internal Medicine
DX: R68.89 Other general symptoms and signs (principal); Z79.899 Other long term (current) drug therapy
CPT/HCPCS: 85027

== ENCOUNTER 2020-02-08 10:05 | Inpatient (IN) | payer OTHER | END 2020-03-10 09:11 | disposition still patient (30) | LOC: PAVB 10:05 | PROVIDERS: ADMIT Internal Medicine | CPT/HCPCS: 87635; U0002 ==

== ENCOUNTER 2020-02-12 10:00 | Outpatient (CLI) | payer OTHER ==
[2020-02-12 10:38] LABS: POTASSIUM 4.8 mmol/L (3.6-5.2)
[2020-02-12 10:46] LABS: PLATELET COUNT 45 K/uL (152-353)
== END 2020-02-12 19:07 | disposition home or self-care (01) ==
LOC: LAB 10:00 → US 10:00 → LAB 19:07
PROVIDERS: Nurse Practitioner
DX: N93.8 Other specified abnormal uterine and vaginal bleeding (principal); Z85.43 Personal history of malignant neoplasm of ovary; Z51.81 Encounter for therapeutic drug level monitoring
CPT/HCPCS: 80053; 85027; 85610; 85730

== ENCOUNTER 2020-02-13 06:13 | Outpatient (CLI) | payer OTHER ==
[2020-02-13 06:32] LABS: PLATELET COUNT 54 K/uL (152-353)
[2020-02-13 06:50] LABS: POTASSIUM 4.8 mmol/L (3.6-5.2)
== END 2020-02-13 20:55 | disposition home or self-care (01) ==
LOC: LAB 06:13
PROVIDERS: Internal Medicine
DX: D64.89 Other specified anemias (principal); J96.20 Acute and chronic respiratory failure, unspecified whether with hypoxia or hypercapnia; N18.9 Chronic kidney disease, unspecified; G47.33 Obstructive sleep apnea (adult) (pediatric); G40.89 Other seizures; R55 Syncope and collapse
CPT/HCPCS: 80053; 80164; 83735; 84550; 85027

== ENCOUNTER 2020-02-15 10:39 | Outpatient (CLI) | payer OTHER ==
[2020-02-15 10:58] LABS: PLATELET COUNT 59 K/uL (152-353)
== END 2020-02-15 22:06 | disposition home or self-care (01) ==
LOC: LAB 10:39
PROVIDERS: Nurse Practitioner
DX: D69.6 Thrombocytopenia, unspecified (principal)
CPT/HCPCS: 85027

== ENCOUNTER 2020-02-16 11:08 | Outpatient (CLI) | payer OTHER | END 2020-02-16 19:03 | disposition home or self-care (01) | LOC: LAB 11:08 → RESP 11:08 → LAB 19:03 | DX: M62.81 Muscle weakness (generalized) (principal); G40.89 Other seizures | CPT/HCPCS: 36600; 80164; 82805 ==

== ENCOUNTER 2020-02-16 16:08 | Emergency (ER) | payer OTHER ==
[~2020-02-16] VITALS: Ht 161.3 cm; Wt 88.5 kg
[2020-02-16 16:50] LABS: PLATELET COUNT 81 K/uL (152-353)
[2020-02-16 16:58] LABS: POTASSIUM 4.9 mmol/L (3.6-5.2)
[2020-02-16 18:45] VITALS: BP 159/54; TEMP 98.3
== END 2020-02-16 19:24 ==
LOC: ED 16:08
PROVIDERS: Family Medicine
DX: J44.1 Chronic obstructive pulmonary disease with (acute) exacerbation (principal)
CPT/HCPCS: 80053; 81000; 83605; 85027; 87040; 87502; 87651; 94664; 96374; 99284; J2930

== ENCOUNTER 2020-02-21 06:39 | Outpatient (CLI) | payer OTHER | END 2020-02-21 18:58 | disposition home or self-care (01) | LOC: LAB 06:39 | PROVIDERS: Internal Medicine | DX: U07.1 COVID-19 (principal) | CPT/HCPCS: 80053 ==

== ENCOUNTER 2020-03-05 19:40 | Emergency (ER) | payer OTHER ==
[~2020-03-05] VITALS: Ht 161.3 cm; Wt 84.4 kg
[2020-03-05 21:11] LABS: PLATELET COUNT 67 K/uL (152-353)
[2020-03-05 21:14] LABS: POTASSIUM 4.2 mmol/L (3.6-5.2)
[2020-03-05 22:29] VITALS: TEMP 98.9
[2020-03-05 22:56] VITALS: BP 121/69
== END 2020-03-05 22:57 | disposition home or self-care (01) ==
LOC: ED 19:40
PROVIDERS: Emergency Medicine
DX: R41.82 Altered mental status, unspecified (principal); J44.9 Chronic obstructive pulmonary disease, unspecified
CPT/HCPCS: 36600; 51702; 80053; 81000; 82805; 85027; 93005; 99283

== ENCOUNTER 2020-03-07 07:09 | Outpatient (CLI) | payer OTHER ==
[2020-03-07 10:20] LABS: POTASSIUM 4.1 mmol/L (3.6-5.2)
== END 2020-03-07 19:18 | disposition home or self-care (01) ==
LOC: LAB 07:09
PROVIDERS: Internal Medicine
DX: N18.9 Chronic kidney disease, unspecified (principal)
CPT/HCPCS: 80048

== ENCOUNTER 2020-03-10 10:03 | Inpatient (IN) | payer OTHER | END 2020-04-09 10:20 | disposition still patient (30) | LOC: PAVB 10:03 | PROVIDERS: ADMIT Internal Medicine ==

== ENCOUNTER 2020-03-21 06:44 | Outpatient (CLI) | payer OTHER | END 2020-03-21 18:54 | disposition home or self-care (01) | LOC: LAB 06:44 | DX: Z51.81 Encounter for therapeutic drug level monitoring (principal) | CPT/HCPCS: 80164 ==

== ENCOUNTER 2020-04-09 11:04 | Inpatient (IN) | payer OTHER | END 2020-05-10 09:16 | disposition still patient (30) | LOC: PAVB 11:04 | PROVIDERS: ADMIT Internal Medicine ==

== ENCOUNTER → 2020-04-10 | Outpatient (CLI) | payer OTHER | LOC: LAB 06:36 | DX: E11.40 Type 2 diabetes mellitus with diabetic neuropathy, unspecified (principal) | CPT/HCPCS: 83036 ==

== ENCOUNTER 2020-05-02 13:52 | Outpatient (CLI) | payer OTHER | END 2020-05-02 19:50 | disposition home or self-care (01) | LOC: LAB 13:52 | PROVIDERS: ATTEND Internal Medicine | DX: N61.1 Abscess of the breast and nipple (principal) | CPT/HCPCS: 87070; 87077; 87185; 87186; 87205 ==

== ENCOUNTER 2020-05-10 09:39 | Inpatient (IN) | payer OTHER | END 2020-06-10 12:15 | disposition still patient (30) | LOC: PAVB 09:39 | PROVIDERS: ADMIT Internal Medicine | CPT/HCPCS: 87635; U0003 ==

== ENCOUNTER 2020-06-10 13:03 | Inpatient (IN) | payer OTHER | END 2020-07-10 11:05 | disposition still patient (30) | LOC: PAVB 13:03 | PROVIDERS: ADMIT Internal Medicine ==

== ENCOUNTER 2020-07-10 13:45 | Inpatient (IN) | payer OTHER ==
[2020-07-14] MEDS ORDERED: DIVA500T2 PO (04:10)
[2020-07-14] MEDS ORDERED: ZINC220C4 PO (04:15)
[2020-07-14] MEDS ORDERED: ASCORBIC ACD500 MG PO (04:18)
[2020-07-14] MEDS ORDERED: NEURONTIN 100M100 MG PO (04:21)
[2020-07-17] MEDS ORDERED: ALLO100T22 PO (07:49)
[2020-07-17] MEDS ORDERED: CEFD300C2 PO (07:52)
[2020-07-17] MEDS ORDERED: MAG OXIDE400 MG PO (07:53)
== END 2020-08-10 08:00 | disposition still patient (30) ==
LOC: PAVB 13:45
PROVIDERS: ADMIT Internal Medicine
DX: J96.21 Acute and chronic respiratory failure with hypoxia (principal); J96.22 Acute and chronic respiratory failure with hypercapnia; M62.81 Muscle weakness (generalized); Z74.1 Need for assistance with personal care; M54.5 Low back pain
CPT/HCPCS: 81000; 83036; G0283-GP

== ENCOUNTER 2020-07-13 17:08 | Emergency (ER) | payer OTHER ==
[~2020-07-13] VITALS: Ht 160 cm; Wt 84.9 kg
[2020-07-13 18:11] VITALS: BP 123/64; TEMP 98.9
[2020-07-14] MEDS ORDERED: DIVA500T2 PO (04:10)
[2020-07-14] MEDS ORDERED: ZINC220C4 PO (04:15)
[2020-07-14] MEDS ORDERED: ASCORBIC ACD500 MG PO (04:18)
[2020-07-14] MEDS ORDERED: NEURONTIN 100M100 MG PO (04:21)
== END 2020-07-13 18:16 ==
LOC: ED 17:08
DX: G47.39 Other sleep apnea (principal); R09.02 Hypoxemia
CPT/HCPCS: 99282

== ENCOUNTER 2020-07-13 20:48 | Inpatient (IN) | payer OTHER ==
[~2020-07-13] VITALS: Ht 162.6 cm; Wt 86.2 kg
[2020-07-13 20:00] VITALS: BP 105/48; TEMP 97.7
[2020-07-13 20:55] VITALS: BP 150/71; TEMP 99.5
[2020-07-13 21:58] LABS: PLATELET COUNT 112 K/uL (152-353)
[2020-07-13 21:59] LABS: POTASSIUM 4.2 mmol/L (3.6-5.2)
[2020-07-14] VITALS (14 sets, daily range): BP systolic 98–123; BP diastolic 46–64; TEMP 97–99.1; Ht 162.6 cm; Wt 86.2 kg
[2020-07-14] MEDS ORDERED: DIVA500T2 PO (04:10)
[2020-07-14] MEDS ORDERED: ZINC220C4 PO (04:15)
[2020-07-14] MEDS ORDERED: ASCORBIC ACD500 MG PO (04:18)
[2020-07-14] MEDS ORDERED: NEURONTIN 100M100 MG PO (04:21)
[2020-07-14 09:48] LABS: PLATELET COUNT 96 K/uL (152-353)
[2020-07-15] VITALS (26 sets, daily range): BP systolic 86–119; BP diastolic 38–65; TEMP 98.2–100
[2020-07-16] VITALS (16 sets, daily range): BP systolic 98–130; BP diastolic 57–73; TEMP 98–98.9
[2020-07-16 08:17] LABS: PLATELET COUNT 79 K/uL (152-353)
[2020-07-16 08:27] LABS: POTASSIUM 4.7 mmol/L (3.6-5.2)
[2020-07-17] MEDS ORDERED: ALLO100T22 PO (07:49)
[2020-07-17] MEDS ORDERED: CEFD300C2 PO (07:52)
[2020-07-17] MEDS ORDERED: MAG OXIDE400 MG PO (07:53)
== END 2020-07-16 13:00 | DRG 551 ==
LOC: ED 20:48 → MED/SURG 23:31 → PCU 07-14 18:25
PROVIDERS: Emergency Medicine Emergency Medical Services; ADMIT Internal Medicine Endocrinology, Diabetes & Metabolism
DX: S32.058A Other fracture of fifth lumbar vertebra, initial encounter for closed fracture (principal); J96.21 Acute and chronic respiratory failure with hypoxia; N30.00 Acute cystitis without hematuria; G40.802 Other epilepsy, not intractable, without status epilepticus; E66.2 Morbid (severe) obesity with alveolar hypoventilation; W18.39XA Other fall on same level, initial encounter; Y92.89 Other specified places as the place of occurrence of the external cause; S00.03XA Contusion of scalp, initial encounter; E11.9 Type 2 diabetes mellitus without complications; F41.8 Other specified anxiety disorders; F78 Other intellectual disabilities
CPT/HCPCS: 36415; 36600; 80048; 80053; 81000; 82805; 85007; 85027; 87088; 87635; 94640; 94660; 94664; 94760; 96365; 99284; J0696; J1650; J7040; U0003

== ENCOUNTER 2020-07-16 18:48 | Inpatient (IN) | payer OTHER ==
[2020-07-16] VITALS (7 sets, daily range): BP systolic 118–136; BP diastolic 55–77; TEMP 98.2–98.8; Ht 165.1 cm; Wt 86.6 kg
[~2020-07-16] VITALS: Ht 165.1 cm; Wt 86.6 kg
[~2020-07-16 18:48] MED LIST changes: +ASCORBIC ACD500 MG PO; +DIVA500T2 PO; +NEURONTIN 100M100 MG PO; +ZINC220C4 PO
[2020-07-16 19:18] LABS: PLATELET COUNT 144 K/uL (152-353)
[2020-07-16 19:24] LABS: POTASSIUM 4.7 mmol/L (3.6-5.2); SODIUM 137 mmol/L (136-145)
[2020-07-17] VITALS (24 sets, daily range): BP systolic 103–162; BP diastolic 52–90; TEMP 97.7–98.7
[2020-07-17] MEDS ORDERED: ALLO100T22 PO (07:49)
[2020-07-17] MEDS ORDERED: CEFD300C2 PO (07:52)
[2020-07-17] MEDS ORDERED: MAG OXIDE400 MG PO (07:53)
[2020-07-17 11:07] LABS: PLATELET COUNT 133 K/uL (152-353)
[2020-07-17 11:30] LABS: POTASSIUM 4.4 mmol/L (3.6-5.2)
[2020-07-18] VITALS (11 sets, daily range): BP systolic 94–113; BP diastolic 54–68; TEMP 98–98.2
== END 2020-07-18 10:40 | DRG 189 ==
LOC: ED 18:48 → PCU 19:17 → MED/SURG 19:17 → PCU 19:18
PROVIDERS: Emergency Medicine Emergency Medical Services; ADMIT Internal Medicine Endocrinology, Diabetes & Metabolism
DX: J96.21 Acute and chronic respiratory failure with hypoxia (principal); S32.058A Other fracture of fifth lumbar vertebra, initial encounter for closed fracture; E66.2 Morbid (severe) obesity with alveolar hypoventilation; G40.802 Other epilepsy, not intractable, without status epilepticus; N30.80 Other cystitis without hematuria; E11.69 Type 2 diabetes mellitus with other specified complication; F41.8 Other specified anxiety disorders; I10 Essential (primary) hypertension; F78 Other intellectual disabilities
CPT/HCPCS: 36600; 80053; 82805; 84484; 85027; 87635; 94660; 94760; 99284; U0003

== ENCOUNTER 2020-07-21 06:24 | Outpatient (CLI) | payer OTHER ==
[~2020-07-21 06:24] MED LIST changes: +ALLO100T22 PO; +CEFD300C2 PO
== END 2020-07-21 19:08 | disposition home or self-care (01) ==
LOC: LAB 06:24
DX: E11.9 Type 2 diabetes mellitus without complications (principal)
CPT/HCPCS: 83036

== ENCOUNTER 2020-08-08 13:18 | Outpatient (CLI) | payer OTHER | END 2020-08-08 23:59 | disposition home or self-care (01) | LOC: RAD 13:18 | DX: M54.5 Low back pain (principal) ==

== ENCOUNTER 2020-08-09 06:22 | Outpatient (CLI) | payer OTHER | END 2020-08-09 21:53 | disposition home or self-care (01) | LOC: LAB 06:22 | DX: N18.30 Chronic kidney disease, stage 3 unspecified (principal); M54.5 Low back pain | CPT/HCPCS: 81000 ==

== ENCOUNTER 2020-08-09 08:00 | Outpatient (CLI) | payer OTHER | END 2020-08-09 17:00 | LOC: CCM 08:00 | PROVIDERS: ATTEND Nurse Practitioner Family | DX: J44.1 Chronic obstructive pulmonary disease with (acute) exacerbation (principal); I10 Essential (primary) hypertension; E11.9 Type 2 diabetes mellitus without complications | CPT/HCPCS: 99453; 99454 ==

== ENCOUNTER 2020-08-10 09:00 | Inpatient (IN) | payer OTHER | END 2020-09-09 09:59 | disposition still patient (30) | LOC: PAVB 09:00 | PROVIDERS: ADMIT Internal Medicine; ATTEND Internal Medicine | DX: J96.21 Acute and chronic respiratory failure with hypoxia (principal); J96.22 Acute and chronic respiratory failure with hypercapnia; M62.81 Muscle weakness (generalized); Z74.1 Need for assistance with personal care; M54.5 Low back pain | CPT/HCPCS: 80053; 80164; 83735; 84550; 85007; 85027; G0283-GP ==

== ENCOUNTER 2020-08-18 07:43 | Outpatient (CLI) | payer OTHER ==
[2020-08-18 08:11] LABS: PLATELET COUNT 72 K/uL (152-353)
[2020-08-18 08:26] LABS: POTASSIUM 4.8 mmol/L (3.6-5.2)
== END 2020-08-18 19:03 | disposition home or self-care (01) ==
LOC: LAB 07:43
PROVIDERS: Internal Medicine
DX: J96.20 Acute and chronic respiratory failure, unspecified whether with hypoxia or hypercapnia (principal); N18.9 Chronic kidney disease, unspecified; R55 Syncope and collapse; G47.33 Obstructive sleep apnea (adult) (pediatric); G40.89 Other seizures; M10.00 Idiopathic gout, unspecified site; M62.81 Muscle weakness (generalized); E11.42 Type 2 diabetes mellitus with diabetic polyneuropathy; G62.89 Other specified polyneuropathies
CPT/HCPCS: 80053; 80164; 83735; 84550; 85007; 85027

== ENCOUNTER 2020-09-09 11:09 | Inpatient (IN) | payer OTHER | END 2020-10-10 09:04 | disposition still patient (30) | LOC: PAVB 11:09 | PROVIDERS: ADMIT Internal Medicine; ATTEND Internal Medicine ==

== ENCOUNTER 2020-10-10 09:24 | Inpatient (IN) | payer OTHER | END 2020-11-10 14:56 | disposition still patient (30) | LOC: PAVB 09:24 | PROVIDERS: ADMIT Internal Medicine; ATTEND Internal Medicine ==

== ENCOUNTER 2020-10-13 10:48 | Outpatient (CLI) | payer OTHER | END 2020-10-13 21:08 | disposition home or self-care (01) | LOC: LAB 10:48 | PROVIDERS: ATTEND Internal Medicine | DX: E11.40 Type 2 diabetes mellitus with diabetic neuropathy, unspecified (principal) | CPT/HCPCS: 83036 ==

== ENCOUNTER 2020-11-10 15:15 | Inpatient (IN) | payer OTHER | END 2020-12-08 09:55 | disposition still patient (30) | LOC: PAVB 15:15 | PROVIDERS: ADMIT Internal Medicine; ATTEND Internal Medicine ==

== ENCOUNTER 2020-12-08 10:18 | Inpatient (IN) | payer OTHER ==
[2020-12-28] MEDS ORDERED: DIVA500T2 PO ×2 (02:38→02:40)
[2020-12-28] MEDS ORDERED: NYAMYC100000 UNI EX ×2 (02:43→02:44)
[2020-12-28] MEDS ORDERED: JANUVIA100 MG PO (02:46)
[2020-12-28] MEDS ORDERED: ALLO100T22 PO (02:51)
[2020-12-28] MEDS ORDERED: NEURONTIN 100M100 MG PO ×2 (02:55→02:56)
[2020-12-28] MEDS ORDERED: ALUM-67 PO (02:59)
[2020-12-28] MEDS ORDERED: AZIT250T3 PO (03:06)
[2020-12-28] MEDS ORDERED: FIORICET 50-3001 CAP PO (03:08)
[2021-01-05] MEDS ORDERED: XOPENEX 1.25MG INH 3 INH (08:43)
== END 2021-01-08 10:15 | disposition still patient (30) ==
LOC: PAVB 10:18
PROVIDERS: ADMIT Internal Medicine; ATTEND Internal Medicine

== ENCOUNTER 2020-12-23 13:14 | Outpatient (CLI) | payer OTHER | END 2020-12-23 20:49 | disposition home or self-care (01) | LOC: RAD 13:14 | PROVIDERS: ATTEND Internal Medicine | DX: M25.571 Pain in right ankle and joints of right foot (principal) ==

== ENCOUNTER 2021-01-08 10:38 | Inpatient (IN) | payer OTHER ==
[~2021-01-08 10:38] MED LIST changes: +ALUM-67 PO; +AZIT250T3 PO; +JANUVIA100 MG PO; +NYAMYC100000 UNI EX; +XOPENEX 1.25MG INH 3 INH
== END 2021-02-07 10:51 | disposition still patient (30) ==
LOC: PAVB 10:38
PROVIDERS: ADMIT Internal Medicine; ATTEND Internal Medicine
DX: G47.31 Primary central sleep apnea (principal); G47.33 Obstructive sleep apnea (adult) (pediatric); J44.1 Chronic obstructive pulmonary disease with (acute) exacerbation; M62.81 Muscle weakness (generalized); Z74.1 Need for assistance with personal care; R26.2 Difficulty in walking, not elsewhere classified; R27.8 Other lack of coordination
CPT/HCPCS: 83036

== ENCOUNTER 2021-01-09 12:34 | Outpatient (CLI) | payer OTHER | END 2021-01-09 19:24 | disposition home or self-care (01) | LOC: LAB 12:34 | PROVIDERS: ATTEND Internal Medicine | DX: E11.9 Type 2 diabetes mellitus without complications (principal) | CPT/HCPCS: 83036 ==

== ENCOUNTER 2021-01-23 11:36 | Outpatient (CLI) | payer OTHER ==
[2021-01-23 17:31] LABS: POTASSIUM 5.3 mmol/L (3.6-5.2)
== END 2021-01-23 21:20 | disposition home or self-care (01) ==
LOC: LAB 11:36
PROVIDERS: ATTEND Internal Medicine
DX: J96.21 Acute and chronic respiratory failure with hypoxia (principal); G40.909 Epilepsy, unspecified, not intractable, without status epilepticus; E11.9 Type 2 diabetes mellitus without complications; N18.9 Chronic kidney disease, unspecified; R94.5 Abnormal results of liver function studies
CPT/HCPCS: 80053; 80074; 80164; 83735

== ENCOUNTER 2021-01-28 09:21 | Outpatient (CLI) | payer OTHER | END 2021-01-28 21:18 | disposition home or self-care (01) | LOC: US 09:21 | PROVIDERS: ATTEND Internal Medicine | DX: R94.5 Abnormal results of liver function studies (principal) ==

== ENCOUNTER 2021-02-04 07:59 | Outpatient (CLI) | payer OTHER | END 2021-02-04 21:46 | disposition home or self-care (01) | LOC: NM 07:59 | PROVIDERS: ATTEND Internal Medicine | DX: K80.00 Calculus of gallbladder with acute cholecystitis without obstruction (principal) | CPT/HCPCS: A9537 ==

== ENCOUNTER 2021-02-07 11:13 | Inpatient (IN) | payer OTHER | END 2021-03-10 14:39 | disposition still patient (30) | LOC: PAVB 11:13 | PROVIDERS: ADMIT Internal Medicine; ATTEND Internal Medicine | DX: G47.31 Primary central sleep apnea (principal); G47.33 Obstructive sleep apnea (adult) (pediatric); J44.1 Chronic obstructive pulmonary disease with (acute) exacerbation; M62.81 Muscle weakness (generalized); Z74.1 Need for assistance with personal care; R26.2 Difficulty in walking, not elsewhere classified; R27.8 Other lack of coordination | CPT/HCPCS: 80053; 80164; 82272; 82607; 82728; 82747; 83540; 83550; 83735; 84550; 85007; 85027 ==

== ENCOUNTER 2021-02-10 08:13 | Outpatient (CLI) | payer OTHER ==
[2021-02-10 10:43] LABS: POTASSIUM 4.4 mmol/L (3.6-5.2)
[2021-02-10 10:51] LABS: PLATELET COUNT 51 K/uL (152-353)
== END 2021-02-10 19:41 | disposition home or self-care (01) ==
LOC: LAB 08:13
PROVIDERS: ATTEND Internal Medicine
DX: D64.9 Anemia, unspecified (principal); M18.9 Osteoarthritis of first carpometacarpal joint, unspecified; G40.89 Other seizures; J96.20 Acute and chronic respiratory failure, unspecified whether with hypoxia or hypercapnia; N18.9 Chronic kidney disease, unspecified; R55 Syncope and collapse; G47.33 Obstructive sleep apnea (adult) (pediatric)
CPT/HCPCS: 80053; 80164; 82607; 82728; 82747; 83540; 83550; 83735; 84550; 85007; 85027

== ENCOUNTER 2021-02-11 06:34 | Outpatient (CLI) | payer OTHER | END 2021-02-11 19:14 | disposition home or self-care (01) | LOC: LAB 06:34 | PROVIDERS: ATTEND Internal Medicine | DX: D64.89 Other specified anemias (principal) | CPT/HCPCS: 82272 ==

== ENCOUNTER 2021-02-23 07:15 | Outpatient (CLI) | payer OTHER | END 2021-02-23 19:51 | disposition home or self-care (01) | LOC: LAB 07:15 | PROVIDERS: ATTEND Internal Medicine | DX: R79.89 Other specified abnormal findings of blood chemistry (principal) | CPT/HCPCS: 80076 ==

== ENCOUNTER 2021-03-04 09:59 | Outpatient (CLI) | payer OTHER | END 2021-03-04 20:17 | disposition home or self-care (01) | LOC: MAMMO 09:59 → RAD 09:59 → MAMMO 10:00 | PROVIDERS: ATTEND Internal Medicine | DX: J18.9 Pneumonia, unspecified organism (principal) ==

== ENCOUNTER 2021-03-10 15:04 | Inpatient (IN) | payer OTHER | END 2021-04-09 08:00 | disposition still patient (30) | LOC: PAVB 15:04 | PROVIDERS: ADMIT Internal Medicine; ATTEND Internal Medicine ==

== ENCOUNTER 2021-04-09 09:00 | Inpatient (IN) | payer OTHER | END 2021-05-10 08:00 | disposition still patient (30) | LOC: PAVB 09:00 | PROVIDERS: ADMIT Internal Medicine; ATTEND Internal Medicine ==

== ENCOUNTER 2021-04-14 08:08 | Outpatient (CLI) | payer OTHER | END 2021-04-14 19:09 | disposition home or self-care (01) | LOC: LAB 08:08 | PROVIDERS: ATTEND Internal Medicine | DX: E11.40 Type 2 diabetes mellitus with diabetic neuropathy, unspecified (principal) | CPT/HCPCS: 83036 ==

== ENCOUNTER 2021-05-10 09:00 | Inpatient (IN) | payer OTHER | END 2021-06-10 10:34 | disposition still patient (30) | LOC: PAVB 09:00 | PROVIDERS: ADMIT Internal Medicine; ATTEND Internal Medicine ==

== ENCOUNTER 2021-05-20 10:43 | Outpatient (CLI) | payer OTHER | END 2021-05-20 18:59 | disposition home or self-care (01) | LOC: RAD 10:43 | PROVIDERS: ATTEND Internal Medicine Sleep Medicine | DX: M25.512 Pain in left shoulder (principal); R91.8 Other nonspecific abnormal finding of lung field ==

== ENCOUNTER 2021-06-10 14:43 | Inpatient (IN) | payer OTHER | END 2021-07-10 08:45 | disposition still patient (30) | LOC: PAVB 14:43 | PROVIDERS: ADMIT Internal Medicine; ATTEND Internal Medicine ==

== ENCOUNTER 2021-07-02 16:27 | Outpatient (CLI) | payer OTHER | END 2021-07-02 19:17 | disposition home or self-care (01) | LOC: LAB 16:27 | PROVIDERS: ATTEND Internal Medicine | DX: R35.0 Frequency of micturition (principal); R39.15 Urgency of urination | CPT/HCPCS: 81000 ==

== ENCOUNTER 2021-07-13 08:31 | Outpatient (CLI) | payer OTHER | END 2021-07-13 21:05 | disposition home or self-care (01) | LOC: LAB 08:31 | PROVIDERS: ATTEND Internal Medicine | DX: E11.40 Type 2 diabetes mellitus with diabetic neuropathy, unspecified (principal) | CPT/HCPCS: 83036 ==

== ENCOUNTER 2021-08-12 07:06 | Outpatient (CLI) | payer OTHER ==
[2021-08-12 08:08] LABS: PLATELET COUNT 83 K/uL (152-353)
== END 2021-08-12 22:34 | disposition home or self-care (01) ==
LOC: LAB 07:06
PROVIDERS: ATTEND Internal Medicine
DX: N18.9 Chronic kidney disease, unspecified (principal); G47.33 Obstructive sleep apnea (adult) (pediatric)
CPT/HCPCS: 80053; 80164; 83735; 84550; 85027

== ENCOUNTER 2021-08-19 06:54 | Outpatient (CLI) | payer OTHER | END 2021-08-19 20:38 | disposition home or self-care (01) | LOC: LAB 06:54 | PROVIDERS: ATTEND Internal Medicine | DX: R56.9 Unspecified convulsions (principal); R89.2 Abnormal level of other drugs, medicaments and biological substances in specimens from other organs, systems and tissues | CPT/HCPCS: 36415; 80164 ==

== ENCOUNTER 2021-09-09 10:31 | Inpatient (IN) | payer OTHER | END 2021-10-10 08:23 | disposition still patient (30) | LOC: PAVB 10:31 | PROVIDERS: ADMIT Internal Medicine; ATTEND Internal Medicine ==

== ENCOUNTER 2021-10-10 08:56 | Inpatient (IN) | payer OTHER ==
[2021-10-28] MEDS ORDERED: LEVAQUIN250 MG PO (13:40)
[2021-11-07] MEDS ORDERED: CLOPIDOGREL75 MG PO (10:56)
[2021-11-07] MEDS ORDERED: FLUTICASON50 MCG/AC1 NAS (10:59)
[2021-11-07] MEDS ORDERED: ISOS30TA17 PO (11:02)
[2021-11-07] MEDS ORDERED: MAGNSUS68 PO (11:04)
[2021-11-07] MEDS ORDERED: MULTIVITAMI1 PO (11:05)
[2021-11-07] MEDS ORDERED: NOVOLOG FL100 UNIT/M SC (11:07)
[2021-11-07] MEDS ORDERED: CYAN10009 IM (11:21)
[2021-11-07] MEDS ORDERED: TRAMADOL HYDROC50 MG PO (11:22)
[2021-11-07] MEDS ORDERED: NYSTATIN100000 UNI PO (11:27)
== END 2021-11-10 09:31 | disposition still patient (30) ==
LOC: PAVB 08:56
PROVIDERS: ADMIT Internal Medicine; ATTEND Internal Medicine

== ENCOUNTER 2021-10-12 08:58 | Outpatient (CLI) | payer OTHER | END 2021-10-12 18:49 | disposition home or self-care (01) | LOC: LAB 08:58 | PROVIDERS: ATTEND Internal Medicine | DX: E11.40 Type 2 diabetes mellitus with diabetic neuropathy, unspecified (principal) | CPT/HCPCS: 83036 ==

== ENCOUNTER 2021-10-19 05:55 | Emergency (ER) | payer OTHER ==
[~2021-10-19] VITALS: Ht 165.1 cm; Wt 73.5 kg
[2021-10-19 09:45] VITALS: BP 121/68; TEMP 97.8
== END 2021-10-19 09:45 | disposition home or self-care (01) ==
LOC: ED 05:55
PROC: 2W3RX1Z Immobilization of Left Lower Leg using Splint (ICD-10-PCS; principal; 2021-10-19)
DX: S82.852A Displaced trimalleolar fracture of left lower leg, initial encounter for closed fracture (principal); W01.0XXA Fall on same level from slipping, tripping and stumbling without subsequent striking against object, initial encounter; Y92.128 Other place in nursing home as the place of occurrence of the external cause
CPT/HCPCS: 99283

== ENCOUNTER 2021-10-24 16:19 | Inpatient (IN) | payer OTHER ==
[~2021-10-24] VITALS: Ht 165.1 cm; Wt 78.2 kg
[2021-10-24 16:35] VITALS: BP 133/79; TEMP 98
[2021-10-24 17:33] LABS: PLATELET COUNT 146 K/uL (152-353)
[2021-10-24 17:43] LABS: PARTIAL THROMBOPLASTIN TIME 29.2 SECONDS (24.5-33.6)
[2021-10-24 17:49] LABS: POTASSIUM 4.6 mmol/L (3.6-5.2)
[2021-10-24 20:32] VITALS: BP 125/88; TEMP 99.4
[2021-10-24 21:25] VITALS: BP 125/88; TEMP 99.4; Ht 165.1 cm; Wt 78.2 kg
[2021-10-25] VITALS (7 sets, daily range): BP systolic 104–141; BP diastolic 65–81; TEMP 96.1–98.9
[2021-10-25 05:27] LABS: PLATELET COUNT 136 K/uL (152-353)
[2021-10-25 05:34] LABS: POTASSIUM 4.5 mmol/L (3.6-5.2)
[2021-10-26] VITALS (7 sets, daily range): BP systolic 100–111; BP diastolic 59–76; TEMP 97.6–98.1
[2021-10-26 05:50] LABS: PLATELET COUNT 145 K/uL (152-353)
[2021-10-27] VITALS: BP 104/62; TEMP 98.2
[2021-10-27 04:00] VITALS: BP 121/58; TEMP 97.9
[2021-10-27 07:41] LABS: PLATELET COUNT 79 K/uL (152-353)
[2021-10-27 08:00] VITALS: BP 108/64; TEMP 97.6
[2021-10-27 11:30] LABS: POTASSIUM 4.3 mmol/L (3.6-5.2)
[2021-10-27 12:00] VITALS: BP 112/71; TEMP 97.3
[2021-10-27 16:00] VITALS: BP 113/69; TEMP 97.8
[2021-10-27 20:00] VITALS: BP 105/50; TEMP 97.4
[2021-10-28] VITALS: BP 97/54; TEMP 96.9
[2021-10-28 04:00] VITALS: BP 105/61; TEMP 96.9
[2021-10-28 05:00] VITALS: BP 116/71; TEMP 96.3
[2021-10-28 05:51] LABS: PLATELET COUNT 177 K/uL (152-353)
[2021-10-28 06:12] LABS: POTASSIUM 4.8 mmol/L (3.6-5.2)
[2021-10-28 08:00] VITALS: BP 116/71; TEMP 96.3
[2021-10-28 12:00] VITALS: BP 97/61; TEMP 97.9
[2021-10-28] MEDS ORDERED: LEVAQUIN250 MG PO (13:40)
== END 2021-10-28 12:55 | DRG 193 ==
LOC: ED 16:19 → MED/SURG 18:20
PROVIDERS: Emergency Medicine; ADMIT Internal Medicine Endocrinology, Diabetes & Metabolism; ATTEND Internal Medicine Endocrinology, Diabetes & Metabolism
DX: J18.8 Other pneumonia, unspecified organism (principal); J96.01 Acute respiratory failure with hypoxia; J44.0 Chronic obstructive pulmonary disease with (acute) lower respiratory infection; N17.8 Other acute kidney failure; J44.1 Chronic obstructive pulmonary disease with (acute) exacerbation; E11.40 Type 2 diabetes mellitus with diabetic neuropathy, unspecified; E11.22 Type 2 diabetes mellitus with diabetic chronic kidney disease; I12.9 Hypertensive chronic kidney disease with stage 1 through stage 4 chronic kidney disease, or unspecified chronic kidney disease; N18.32 Chronic kidney disease, stage 3b; G47.33 Obstructive sleep apnea (adult) (pediatric)
CPT/HCPCS: 36415; 80048; 80053; 81000; 83605; 83880; 84484; 85027; 85610; 85730; 87040; 87635; 93005; 94760; 96365; 99284; J1956; J1650; J1815; U0003

== ENCOUNTER 2021-11-02 10:24 | Outpatient (CLI) | payer OTHER ==
[~2021-11-02 10:24] MED LIST changes: +LEVAQUIN250 MG PO
== END 2021-11-02 20:55 | disposition home or self-care (01) ==
LOC: RAD 10:24
PROVIDERS: ATTEND Internal Medicine
DX: M25.572 Pain in left ankle and joints of left foot (principal)

== ENCOUNTER 2021-11-06 13:29 | Inpatient (IN) | payer OTHER ==
[2021-11-06] VITALS (11 sets, daily range): BP systolic 74–122; BP diastolic 45–79; TEMP 97.1–99.1; Ht 165.1 cm; Wt 82.6 kg
[~2021-11-06] VITALS: Ht 165.1 cm; Wt 82.6 kg
[2021-11-06 13:52] LABS: PLATELET COUNT 170 K/uL (152-353)
[2021-11-06 15:07] LABS: POTASSIUM 6.1 mmol/L (3.6-5.2)
[2021-11-07] VITALS (44 sets, daily range): BP systolic 80–116; BP diastolic 40–71; TEMP 96.6–100.8
[2021-11-07 05:17] LABS: PLATELET COUNT 126 K/uL (152-353)
[2021-11-07 05:24] LABS: POTASSIUM 6.9 mmol/L (3.6-5.2)
[2021-11-07] MEDS ORDERED: CLOPIDOGREL75 MG PO (10:56)
[2021-11-07] MEDS ORDERED: FLUTICASON50 MCG/AC1 NAS (10:59)
[2021-11-07] MEDS ORDERED: ISOS30TA17 PO (11:02)
[2021-11-07] MEDS ORDERED: MAGNSUS68 PO (11:04)
[2021-11-07] MEDS ORDERED: MULTIVITAMI1 PO (11:05)
[2021-11-07] MEDS ORDERED: NOVOLOG FL100 UNIT/M SC (11:07)
[2021-11-07] MEDS ORDERED: CYAN10009 IM (11:21)
[2021-11-07] MEDS ORDERED: TRAMADOL HYDROC50 MG PO (11:22)
[2021-11-07] MEDS ORDERED: NYSTATIN100000 UNI PO (11:27)
[2021-11-08] VITALS (9 sets, daily range): BP systolic 91–109; BP diastolic 56–71; TEMP 97.4–99.6
[2021-11-08 05:49] LABS: POTASSIUM 6.4 mmol/L (3.6-5.2)
[2021-11-08 05:53] LABS: PLATELET COUNT 214 K/uL (152-353)
[2021-11-08 16:21] LABS: POTASSIUM 5.6 mmol/L (3.6-5.2)
[2021-11-09 04:18] VITALS: BP 101/59; TEMP 98.01
[2021-11-09 05:23] LABS: PLATELET COUNT 192 K/uL (152-353)
[2021-11-09 05:30] LABS: POTASSIUM 5.2 mmol/L (3.6-5.2)
[2021-11-09 08:33] VITALS: BP 98/59; TEMP 98
[2021-11-09 20:00] VITALS: BP 111/66; TEMP 97.9
[2021-11-09 21:00] VITALS: BP 114/62
[2021-11-09 22:00] VITALS: BP 79/48
[2021-11-09 23:00] VITALS: BP 120/61
[2021-11-10] VITALS (23 sets, daily range): BP systolic 99–146; BP diastolic 51–85; TEMP 96.6–98.2
[2021-11-10 05:38] LABS: PLATELET COUNT 196 K/uL (152-353)
[2021-11-10 05:48] LABS: POTASSIUM 4.7 mmol/L (3.6-5.2)
[2021-11-11] VITALS (9 sets, daily range): BP systolic 125–155; BP diastolic 22–96; TEMP 96.2–98.9
[2021-11-11 06:02] LABS: POTASSIUM 4.6 mmol/L (3.6-5.2)
[2021-11-11 06:08] LABS: PLATELET COUNT 230 K/uL (152-353)
[2021-11-12 00:21] VITALS: BP 147/87; TEMP 97.4
[2021-11-12 03:58] VITALS: BP 128/81; TEMP 97.8
[2021-11-12 20:02] VITALS: BP 118/66; TEMP 96.9
[2021-11-13 00:07] VITALS: BP 117/74; TEMP 97.5
[2021-11-13 04:13] VITALS: BP 128/78; TEMP 97.5
[2021-11-13 08:00] VITALS: BP 123/66; TEMP 97.8
[2021-11-13 10:12] VITALS: BP 136/83; TEMP 98.3
== END 2021-11-13 11:32 | DRG 871 ==
LOC: ED 13:29 → MED/SURG 15:00
PROVIDERS: Hospitalist; ADMIT Internal Medicine Endocrinology, Diabetes & Metabolism; ATTEND Internal Medicine Endocrinology, Diabetes & Metabolism
DX: A41.89 Other specified sepsis (principal); J18.8 Other pneumonia, unspecified organism; J96.01 Acute respiratory failure with hypoxia; G92.8 Other toxic encephalopathy; N17.8 Other acute kidney failure; J44.0 Chronic obstructive pulmonary disease with (acute) lower respiratory infection; I13.0 Hypertensive heart and chronic kidney disease with heart failure and stage 1 through stage 4 chronic kidney disease, or unspecified chronic kidney disease; Y95 Nosocomial condition; E87.5 Hyperkalemia; K21.9 Gastro-esophageal reflux disease without esophagitis; F03.90 Unspecified dementia, unspecified severity, without behavioral disturbance, psychotic disturbance, mood disturbance, and anxiety; F32.A Depression, unspecified; G47.31 Primary central sleep apnea; E11.22 Type 2 diabetes mellitus with diabetic chronic kidney disease; N18.32 Chronic kidney disease, stage 3b; I50.9 Heart failure, unspecified
CPT/HCPCS: 36415; 36416; 36600; 51702; 80048; 80053; 80202; 81000; 82040; 82550; 82805; 83605; 83880; 84484; 85027; 85610; 85730; 87040; 87088; 87635; 94660; 94760; 96360; 96365; 96375; 99284; J0132; J0456; J0610; J1815; J1940; J1956; J2930; J3370; J3490; J7060; U0003

== ENCOUNTER 2021-11-10 15:13 | Inpatient (IN) | payer OTHER ==
[~2021-11-10 15:13] MED LIST changes: +CLOPIDOGREL75 MG PO; +CYAN10009 IM; +FLUTICASON50 MCG/AC1 NAS; +ISOS30TA17 PO; +MULTIVITAMI1 PO; +NOVOLOG FL100 UNIT/M SC; +NYSTATIN100000 UNI PO; +TRAMADOL HYDROC50 MG PO
== END 2021-12-08 08:59 | disposition still patient (30) ==
LOC: PAVB 15:13
PROVIDERS: ADMIT Internal Medicine; ATTEND Internal Medicine
DX: J96.90 Respiratory failure, unspecified, unspecified whether with hypoxia or hypercapnia (principal); G47.31 Primary central sleep apnea; S82.432D Displaced oblique fracture of shaft of left fibula, subsequent encounter for closed fracture with routine healing; S82.52XD Displaced fracture of medial malleolus of left tibia, subsequent encounter for closed fracture with routine healing; R13.12 Dysphagia, oropharyngeal phase; R26.81 Unsteadiness on feet; Z74.1 Need for assistance with personal care; M62.81 Muscle weakness (generalized)

== ENCOUNTER 2021-12-08 14:59 | Inpatient (IN) | payer OTHER | END 2022-01-08 08:42 | disposition still patient (30) | LOC: PAVB 14:59 | PROVIDERS: ADMIT Internal Medicine; ATTEND Internal Medicine ==

== ENCOUNTER 2022-01-08 09:41 | Inpatient (IN) | payer OTHER | END 2022-02-07 10:21 | disposition still patient (30) | LOC: PAVB 09:41 | PROVIDERS: ADMIT Internal Medicine; ATTEND Internal Medicine ==

== ENCOUNTER 2022-01-19 13:50 | Outpatient (CLI) | payer OTHER ==
[2022-01-19 14:52] LABS: PLATELET COUNT 165 K/uL (152-353)
[2022-01-19 15:58] LABS: POTASSIUM 7.7 mmol/L (3.6-5.2)
== END 2022-01-19 19:46 | disposition home or self-care (01) ==
LOC: RAD 13:50
PROVIDERS: ATTEND Physician Assistant
DX: I50.20 Unspecified systolic (congestive) heart failure (principal)
CPT/HCPCS: 80053; 83880; 85027

== ENCOUNTER 2022-01-20 07:22 | Outpatient (CLI) | payer OTHER ==
[2022-01-20 08:18] LABS: POTASSIUM 7.1 mmol/L (3.6-5.2)
== END 2022-01-20 21:32 | disposition home or self-care (01) ==
LOC: LAB 07:22
PROVIDERS: ATTEND Internal Medicine
DX: I50.9 Heart failure, unspecified (principal)
CPT/HCPCS: 80048

== ENCOUNTER 2022-01-21 06:35 | Outpatient (CLI) | payer OTHER | END 2022-01-21 21:21 | disposition home or self-care (01) | LOC: RESP 06:35 → LAB 06:35 | PROVIDERS: ATTEND Internal Medicine | DX: E87.5 Hyperkalemia (principal) | CPT/HCPCS: 36415; 36600; 80048; 82805 ==

== ENCOUNTER 2022-01-22 06:37 | Outpatient (CLI) | payer OTHER ==
[2022-01-22 07:33] LABS: POTASSIUM 5.2 mmol/L (3.6-5.2)
== END 2022-01-22 20:51 | disposition home or self-care (01) ==
LOC: LAB 06:37
PROVIDERS: ATTEND Internal Medicine
DX: E87.5 Hyperkalemia (principal)
CPT/HCPCS: 36415; 80048

== ENCOUNTER 2022-01-23 06:18 | Outpatient (CLI) | payer OTHER ==
[2022-01-23 08:00] LABS: POTASSIUM 4.7 mmol/L (3.6-5.2)
== END 2022-01-23 20:31 | disposition home or self-care (01) ==
LOC: LAB 06:18
PROVIDERS: ATTEND Internal Medicine
DX: E87.5 Hyperkalemia (principal)
CPT/HCPCS: 80048

== ENCOUNTER 2022-01-24 06:37 | Outpatient (CLI) | payer OTHER ==
[2022-01-24 06:49] LABS: POTASSIUM 4.4 mmol/L (3.6-5.2)
== END 2022-01-24 20:39 | disposition home or self-care (01) ==
LOC: LAB 06:37
PROVIDERS: ATTEND Internal Medicine
DX: E87.5 Hyperkalemia (principal)
CPT/HCPCS: 36415; 80048

== ENCOUNTER 2022-01-31 06:56 | Outpatient (CLI) | payer OTHER ==
[2022-01-31 08:59] LABS: POTASSIUM 3.8 mmol/L (3.6-5.2)
== END 2022-01-31 20:36 | disposition home or self-care (01) ==
LOC: LAB 06:56
PROVIDERS: ATTEND Internal Medicine
DX: E87.5 Hyperkalemia (principal)
CPT/HCPCS: 36415; 80048

== ENCOUNTER 2022-02-07 01:08 | Inpatient (IN) | payer OTHER | END 2022-03-10 09:38 | disposition still patient (30) | LOC: PAVB 01:08 | PROVIDERS: ADMIT Internal Medicine; ATTEND Internal Medicine ==

== ENCOUNTER 2022-02-26 06:21 | Outpatient (CLI) | payer OTHER | END 2022-02-26 18:52 | disposition home or self-care (01) | LOC: LAB 06:21 | PROVIDERS: ATTEND Internal Medicine | DX: M10.00 Idiopathic gout, unspecified site (principal) | CPT/HCPCS: 84550 ==

== ENCOUNTER 2022-03-05 13:44 | Outpatient (CLI) | payer OTHER ==
[2022-03-05 15:01] LABS: PLATELET COUNT 178 K/uL (152-353)
== END 2022-03-05 19:29 | disposition home or self-care (01) ==
LOC: RESP 13:44 → LAB 13:44
PROVIDERS: ATTEND Internal Medicine
DX: J96.90 Respiratory failure, unspecified, unspecified whether with hypoxia or hypercapnia (principal); J44.9 Chronic obstructive pulmonary disease, unspecified; R53.1 Weakness
CPT/HCPCS: 85027

== ENCOUNTER 2022-03-10 13:46 | Inpatient (IN) | payer OTHER | END 2022-04-09 09:06 | disposition still patient (30) | LOC: PAVB 13:46 | PROVIDERS: ADMIT Internal Medicine; ATTEND Internal Medicine ==

== ENCOUNTER 2022-04-09 11:21 | Inpatient (IN) | payer OTHER | END 2022-05-10 09:17 | disposition still patient (30) | LOC: PAVB 11:21 | PROVIDERS: ADMIT Internal Medicine; ATTEND Internal Medicine ==

== ENCOUNTER 2022-05-10 11:49 | Inpatient (IN) | payer OTHER | END 2022-06-10 09:03 | disposition still patient (30) | LOC: PAVB 11:49 | PROVIDERS: ADMIT Internal Medicine; ATTEND Internal Medicine ==

== ENCOUNTER 2022-06-10 11:57 | Inpatient (IN) | payer OTHER | END 2022-07-10 10:27 | disposition still patient (30) | LOC: PAVB 11:57 | PROVIDERS: ADMIT Internal Medicine; ATTEND Internal Medicine ==

== ENCOUNTER 2022-07-10 12:43 | Inpatient (IN) | payer OTHER | END 2022-08-10 14:48 | disposition still patient (30) | LOC: PAVB 12:43 | PROVIDERS: ADMIT Internal Medicine; ATTEND Internal Medicine ==